=== PATIENT | male | born 1950 | race Caucasian/White ===

== ENCOUNTER → 2016-07-31 | Outpatient (CLI) | payer BC ==
[~2016-07-31] MED LIST: /GLYB5TA OR; /ONDA4TA OR; ACET65TA OR; CEFT2ADD IV; CIPR500T4 OR; DYAZ37.5 OR; FERR325T OR; FOSI OR; FOSI10TA2 OR; GLUC500T OR; HEPARIN LOCK FLUSH IV; INSULANT SC; NOVO70VL SC; NOVOLOG100 MG/ML SC; OMEP20TA7 OR; PERC5TAB8 OR; PERC7.5T8 OR; SALINE FLUSH IV; SLOWTAB OR; TYLENOL #3 OR; VITA500T OR; zocor PO
[2016-07-31 09:10] LABS: MEAN CORPUSCULAR HEMOGLOBIN 30.9 pg (27.0-33.0); MEAN CORPUSCULAR HGB CONC 33.6 g/dl (32.0-36.5); MEAN CORPUSCULAR VOLUME 91.8 fl (80.0-96.0); RED CELL DISTRIBUTION WIDTH 12.5 % (11.5-14.5); WHITE BLOOD COUNT 8.1 K/mm3 (4.0-10.0)
[2016-07-31 09:39] LABS: ALKALINE PHOSPHATASE 72 U/L (45-117); ALT/SGPT 42 U/L (12-78); ANION GAP 8 MEQ/L (8-16); AST/SGOT 25 U/L (15-37); BILIRUBIN,TOTAL 0.6 MG/DL (0.2-1.0); BLOOD UREA NITROGEN 21 MG/DL (7-18); CALCIUM LEVEL 9.3 MG/DL (8.8-10.2); CARBON DIOXIDE LEVEL 27 MEQ/L (21-32); CHLORIDE LEVEL 106 MEQ/L (98-107); CHOLESTEROL LEVEL 112 MG/DL (<200); CREATININE FOR GFR 1.01 MG/DL (0.70-1.30); GLOMERULAR FILTRATION RATE > 60.0 (>49); GLUCOSE, FASTING 146 MG/DL (80-110); POTASSIUM SERUM 4.3 MEQ/L (3.5-5.1); SODIUM LEVEL 141 MEQ/L (136-145); TRIGLYCERIDES LEVEL 92 MG/DL (<150)
[2016-07-31 09:40] LABS: ALBUMIN 3.4 GM/DL (3.2-5.2); ALBUMIN/GLOBULIN RATIO 1.06 (1.00-1.93); TOTAL PROTEIN 6.6 GM/DL (6.4-8.2)
--- NOTE | 2016-07-31 12:26 | REP ---
REASON: Hypertension. COMPARISON: Multiple latest 12/03/2014. FINDINGS: The superior mediastinal structures are midline. The cardiac silhouette is unremarkable in size, shape, and position. The diaphragmatic surfaces of the lungs are regular, and the costophrenic angles are clear. The pulmonary nath are clear. The imaged osseous structures are intact. IMPRESSION: There is no acute cardiopulmonary disease. No significant change from the prior exam. Signed by Bharathi Avalos DO 07/31/2016 01:42 P
--- NOTE | 2016-08-03 00:30 | ECGEPIP ---
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
== END ==
LOC: M LAB 08:28
PROVIDERS: ATTEND Family Medicine
DX: I10 Essential (primary) hypertension (principal); N40.0 Benign prostatic hyperplasia without lower urinary tract symptoms; R53.83 Other fatigue; E11.9 Type 2 diabetes mellitus without complications

== ENCOUNTER → 2017-10-02 | Outpatient (CLI) | payer MEDICARE, BC ==
[2017-10-02 08:58] LABS: BASO # 0.1 10^3/uL (0.0-0.2); BASO % 0.7 % (0.0-1.0); EOS # 0.4 10^3/uL (0.0-0.50); EOS % 4.5 % (0.0-3.0); HEMATOCRIT 41.4 % (42.0-52.0); HEMOGLOBIN 13.4 g/dl (13.5-17.5); IMMATURE GRANULOCYTE % 0.6 % (0-3.0); LYMPH # 1.4 10^3/uL (1.5-4.5); LYMPH % 16.8 % (24.0-44.0); MEAN CORPUSCULAR HGB CONC 32.4 g/dl (32.0-36.5); MEAN CORPUSCULAR VOLUME 92.8 fl (80.0-96.0); MONO # 0.6 10^3/uL (0.0-0.8); MONO % 6.9 % (0.0-5.0); NEUTROPHILS % 70.5 % (36.0-66.0); PLATELET COUNT, AUTOMATED 222 10^3/uL (150-450); RED BLOOD COUNT 4.46 10^6/uL (4.30-6.10); RED CELL DISTRIBUTION WIDTH 13.1 % (11.5-14.5); WHITE BLOOD COUNT 8.5 10^3/uL (4.0-10.0)
[2017-10-02 09:39] LABS: ALBUMIN 3.2 GM/DL (3.2-5.2); ALBUMIN/GLOBULIN RATIO 0.97 (1.00-1.93); ALKALINE PHOSPHATASE 72 U/L (45-117); ALT/SGPT 42 U/L (12-78); ANION GAP 5 MEQ/L (8-16); AST/SGOT 23 U/L (7-37); BILIRUBIN,TOTAL 0.4 MG/DL (0.2-1.0); BLOOD UREA NITROGEN 29 MG/DL (7-18); CALCIUM LEVEL 8.9 MG/DL (8.8-10.2); CARBON DIOXIDE LEVEL 29 MEQ/L (21-32); CHLORIDE LEVEL 108 MEQ/L (98-107); CHOLESTEROL LEVEL 93 MG/DL (<200); CHOLESTEROL RISK RATIO 2.818 (<5); CREATININE FOR GFR 1.21 MG/DL (0.70-1.30); GLOMERULAR FILTRATION RATE > 60.0 (>49); GLUCOSE, FASTING 156 MG/DL (70-100); HDL CHOLESTEROL 33 MG/DL (>40); NON-HDL-C 60 MG/DL; POTASSIUM SERUM 4.8 MEQ/L (3.5-5.1); PSA SCREENING 0.65 NG/ML (< 4.0); SODIUM LEVEL 142 MEQ/L (136-145); TOTAL PROTEIN 6.5 GM/DL (6.4-8.2); TRIGLYCERIDES LEVEL 90 MG/DL (<150)
[2017-10-02 10:06] LABS: MAU/CREAT RATIO 1990.9 MCG/MG (0.0-30.0)
[2017-10-02 10:29] LABS: ESTIMATED AVERAGE GLUCOSE 203 MG/DL (60-110); HEMOGLOBIN A1c 8.7 %
[2017-10-04 10:02] LABS: TOTAL 25(OH) VITAMIN D 40.3 NG/ML (30.0-100.0)
== END ==
LOC: M LAB 07:59
DX: Z12.5 Encounter for screening for malignant neoplasm of prostate (principal); E55.9 Vitamin D deficiency, unspecified; E11.9 Type 2 diabetes mellitus without complications
CPT/HCPCS: 80053

== ENCOUNTER → 2018-07-22 | Outpatient (CLI) | payer MEDICARE, BC ==
[~2018-07-22] MED LIST changes: -/GLYB5TA OR; -/ONDA4TA OR; +GLYB1TAB29 OR; +ONDA-1 OR
[2018-07-22 08:47] LABS: BASO # 0.1 10^3/uL (0.0-0.2); BASO % 0.8 % (0.0-1.0); EOS # 0.3 10^3/uL (0.0-0.50); EOS % 3.3 % (0.0-3.0); LYMPH # 1.6 10^3/uL (1.5-4.5); LYMPH % 19.8 % (24.0-44.0); MEAN CORPUSCULAR HEMOGLOBIN 30.4 pg (27.0-33.0); MEAN CORPUSCULAR HGB CONC 32.5 g/dl (32.0-36.5); MEAN CORPUSCULAR VOLUME 93.5 fl (80.0-96.0); MONO # 0.8 10^3/uL (0.0-0.8); MONO % 9.5 % (0.0-5.0); NEUTROPHILS # 5.2 10^3/uL (1.8-7.7); NEUTROPHILS % 66.2 % (36.0-66.0); PLATELET COUNT, AUTOMATED 225 10^3/uL (150-450); RED BLOOD COUNT 4.28 10^6/uL (4.30-6.10); WHITE BLOOD COUNT 7.9 10^3/uL (4.0-10.0)
[2018-07-22 09:14] LABS: CHOLESTEROL RISK RATIO 2.533 (<5)
[2018-07-22 09:44] LABS: CREATININE, URINE 58.6 MG/DL; CREATININE,RANDOM URINE 58.6 MG/DL; MAU/CREAT RATIO 2201.3 MCG/MG (0.0-30.0)
[2018-07-22 10:05] LABS: HEMOGLOBIN A1c 8.6 %
[2018-07-22 11:42] LABS: TOTAL 25(OH) VITAMIN D 33.1 NG/ML (30.0-100.0)
== END ==
LOC: M LAB 07:58
PROVIDERS: ATTEND Family Medicine
DX: E55.9 Vitamin D deficiency, unspecified (principal); E11.9 Type 2 diabetes mellitus without complications

== ENCOUNTER → 2019-07-18 | Outpatient (CLI) | payer MEDICARE, BC ==
[2019-07-18 07:50] LABS: HEMATOCRIT 43.2 % (42.0-52.0); MEAN CORPUSCULAR HEMOGLOBIN 30.6 pg (27.0-33.0); MEAN CORPUSCULAR HGB CONC 32.4 g/dl (32.0-36.5); MEAN CORPUSCULAR VOLUME 94.3 fl (80.0-96.0); PLATELET COUNT, AUTOMATED 230 10^3/uL (150-450); RED BLOOD COUNT 4.58 10^6/uL (4.30-6.10); WHITE BLOOD COUNT 8.2 10^3/uL (4.0-10.0)
[2019-07-18 08:20] LABS: ALBUMIN 3.4 GM/DL (3.2-5.2); ALT/SGPT 46 U/L (12-78); BILIRUBIN,TOTAL 0.5 MG/DL (0.2-1.0); BLOOD UREA NITROGEN 18 MG/DL (7-18); CALCIUM LEVEL 8.7 MG/DL (8.8-10.2); CARBON DIOXIDE LEVEL 29 MEQ/L (21-32); CHLORIDE LEVEL 109 MEQ/L (98-107); CHOLESTEROL LEVEL 92 MG/DL (<200); CHOLESTEROL RISK RATIO 2.705 (<5); CREATININE FOR GFR 1.25 MG/DL (0.70-1.30); GLOMERULAR FILTRATION RATE > 60.0 (>49); GLUCOSE, FASTING 134 MG/DL (70-100); HDL CHOLESTEROL 34 MG/DL (>40); LDL CHOLESTEROL 44 MG/DL (<100); NON-HDL-C 58 MG/DL; SODIUM LEVEL 142 MEQ/L (136-145); TOTAL PROTEIN 6.9 GM/DL (6.4-8.2); TRIGLYCERIDES LEVEL 68 MG/DL (<150)
[2019-07-18 08:54] LABS: CREATININE, URINE 68.8 MG/DL; MAU/CREAT RATIO 1845.9 MCG/MG (0.0-30.0)
[2019-07-18 09:45] LABS: HEMOGLOBIN A1c 7.5 %
[2019-07-18 10:41] LABS: TOTAL 25(OH) VITAMIN D 44.3 NG/ML (30.0-100.0)
== END ==
LOC: M LAB 07:04
PROVIDERS: ATTEND Family Medicine
DX: E55.9 Vitamin D deficiency, unspecified (principal); E11.9 Type 2 diabetes mellitus without complications; Z79.899 Other long term (current) drug therapy

== ENCOUNTER → 2020-03-29 | Outpatient (CLI) | payer MEDICARE, BC ==
[2020-03-29 09:42] LABS: HEMATOCRIT 36.5 % (42.0-52.0); HEMOGLOBIN 11.6 g/dl (13.5-17.5); MEAN CORPUSCULAR HEMOGLOBIN 29.8 pg (27.0-33.0); MEAN CORPUSCULAR HGB CONC 31.8 g/dl (32.0-36.5); MEAN CORPUSCULAR VOLUME 93.8 fl (80.0-96.0); PLATELET COUNT, AUTOMATED 214 10^3/uL (150-450); RED BLOOD COUNT 3.89 10^6/uL (4.30-6.10)
[2020-03-29 10:17] LABS: HEMOGLOBIN A1c 8.9 %
[2020-03-29 10:18] LABS: ALBUMIN 3.1 GM/DL (3.2-5.2); BILIRUBIN,TOTAL 0.6 MG/DL (0.2-1.0); CALCIUM LEVEL 8.7 MG/DL (8.8-10.2); CHOLESTEROL RISK RATIO 2.461 (<5); CREATININE FOR GFR 1.53 MG/DL (0.70-1.30); GLOMERULAR FILTRATION RATE 48.6 (>49); PROSTATIC SPECIFIC AG MONITOR 1.4 NG/ML (< 4.00); TOTAL PROTEIN 6.2 GM/DL (6.4-8.2)
[2020-03-29 10:47] LABS: CREATININE, URINE 52.1 MG/DL; MAU/CREAT RATIO 1894.4 MCG/MG (0.0-30.0)
== END ==
LOC: M LAB 08:50
PROVIDERS: ATTEND Family Medicine
DX: E11.9 Type 2 diabetes mellitus without complications (principal); Z12.5 Encounter for screening for malignant neoplasm of prostate

== ENCOUNTER → 2020-06-26 | Outpatient (CLI) | payer MEDICARE, BC ==
[~2020-06-26] MED LIST changes: +ASPI-1 PO; +BASA100I SC; +D31000TA2 PO; +FAMO40TA3 PO; +FEXO180T58 PO; +FOSI40TA3 PO; +INSUH10VL SC; +METF-839 PO; +SIMV40TA20 PO; +VITMTA PO
== END ==
LOC: M LABSMTC 10:54
PROVIDERS: ATTEND Anesthesiology
DX: Z01.812 Encounter for preprocedural laboratory examination (principal)

== ENCOUNTER → 2020-06-27 | Outpatient (CLI) | payer MEDICARE, BC ==
[2020-06-27 09:31] LABS: HEMOGLOBIN 14.7 g/dl (13.5-17.5); MEAN CORPUSCULAR HEMOGLOBIN 29.8 pg (27.0-33.0); MEAN CORPUSCULAR VOLUME 93.3 fl (80.0-96.0); PLATELET COUNT, AUTOMATED 227 10^3/uL (150-450); RED BLOOD COUNT 4.93 10^6/uL (4.30-6.10); WHITE BLOOD COUNT 9.8 10^3/uL (4.0-10.0)
[2020-06-27 10:00] LABS: ALBUMIN 3.7 GM/DL (3.2-5.2); BILIRUBIN,TOTAL 0.5 MG/DL (0.2-1.0); CALCIUM LEVEL 9.3 MG/DL (8.8-10.2); CREATININE FOR GFR 1.42 MG/DL (0.70-1.30); GLOMERULAR FILTRATION RATE 52.9 (>49); POTASSIUM SERUM 5.1 MEQ/L (3.5-5.1)
[2020-06-27 10:15] LABS: HEMOGLOBIN A1c 8.5 %
== END ==
LOC: M LAB 08:54
PROVIDERS: ATTEND Family Medicine
DX: E11.9 Type 2 diabetes mellitus without complications (principal)

== ENCOUNTER 2020-07-01 11:49 | Day surgery (SDC) | payer MEDICARE, BC ==
[~2020-07-01] VITALS: Ht 175.3 cm; Wt 105.2 kg
[~2020-07-01 11:49] MED LIST changes: +NS 1,000 ML IV ONE
[2020-07-01] MEDS ORDERED: hydrALAZINE 20MG/ML 1ML VIAL (J0360 PER 20MG) IV ONE (12:30)
[2020-07-01] MEDS ORDERED: propofoL 200 MG/20 ML VIAL As Ordered ONE (13:08)
[2020-07-01] MEDS ORDERED: LIDOCAINE 2% 100MG/5ML SDV (FOR ANES.) As Ordered ONE (13:08)
--- NOTE | 2020-07-01 14:02 | ROOR ---
Patient Name: Wilfredo Monique Procedure Date: 07/01/2020 1:36 PM Date of : 1950 Age: 69 Room: [facility] Gender: Male Note Status: Finalized Procedure: Total Colonoscopy to Cecum Indications: Colon cancer screening in patient at increased risk: Colorectal cancer in mother, Colon cancer screening in patient at increased risk: Colorectal cancer in father, Last colonoscopy: 2009 Providers: Luiz Larson MD Referring MD: Wilmer Fitzpatrick MD Requesting Provider: Medicines: Monitored Anesthesia Care Complications: No immediate complications. Procedure: Pre-Anesthesia Assessment: - The heart rate, respiratory rate, oxygen saturations, blood pressure, adequacy of pulmonary ventilation, and response to care were monitored throughout the procedure. The Colonoscope was introduced through the anus and advanced to the cecum, identified by appendiceal orifice and ileocecal valve. The colonoscopy was performed without difficulty. The patient tolerated the procedure well. The quality of the bowel preparation was excellent. Findings: The perianal and digital rectal examinations were normal. Non-bleeding internal hemorrhoids were found during retroflexion. The hemorrhoids were small and Grade I (internal hemorrhoids that do not prolapse). Scattered small-mouthed diverticula were found in the recto-sigmoid colon, sigmoid colon and descending colon. The exam was otherwise without abnormality on direct and retroflexion views. Impression: - Non-bleeding internal hemorrhoids. - Diverticulosis in the recto-sigmoid colon, in the sigmoid colon and in the descending colon. - The examination was otherwise normal on direct and retroflexion views. - No specimens collected. - The exam was otherwise normal to the cecum. Recommendation: - Patient has a contact number available for emergencies. The signs and symptoms of potential delayed complications were discussed with the patient. Return to normal activities tomorrow. Written discharge instructions were provided to the patient. - High fiber diet. - Discharge patient to home. - Continue present medications. - Repeat colonoscopy in 5 years for screening purposes. - Return to referring physician. - The findings and recommendations were discussed with the patient's family. Procedure Code(s): --- Professional --- G0105, Colorectal cancer screening; colonoscopy on individual at high risk Diagnosis Code(s): --- Professional --- K64.0, First degree hemorrhoids Z80.0, Family history of malignant neoplasm of digestive organs K57.30, Diverticulosis of large intestine without perforation or abscess without bleeding CPT copyright 2019 [employer]. All rights reserved. The codes documented in this report are preliminary and upon architect marine review may be revised to meet current compliance requirements. Luiz Larson MD Luiz Larson MD 07/01/2020 2:01:52 PM Electronically signed by Luiz Larson MD Number of Addenda: 0 Note Initiated On: 07/01/2020 1:36 PM Estimated Blood Loss: Estimated blood loss: none.
[2020-07-01] MEDS ORDERED: **hydrALAZINE** 10 MG TAB PO ONE (15:00)
[2020-07-01 15:09] VITALS: BP 233/105
[2020-07-01 15:48] VITALS: BP 180/92
--- NOTE | 2020-07-01 21:18 | ECGEPIP ---
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
== END 2020-07-01 15:49 | disposition home or self-care (01) ==
LOC: M OPP 11:49
PROVIDERS: ATTEND Internal Medicine Gastroenterology
DX: Z12.11 Encounter for screening for malignant neoplasm of colon (principal); Z80.0 Family history of malignant neoplasm of digestive organs; K64.0 First degree hemorrhoids; K57.30 Diverticulosis of large intestine without perforation or abscess without bleeding; I10 Essential (primary) hypertension; E78.5 Hyperlipidemia, unspecified; E10.9 Type 1 diabetes mellitus without complications; K21.9 Gastro-esophageal reflux disease without esophagitis; H91.90 Unspecified hearing loss, unspecified ear; Z79.4 Long term (current) use of insulin; Z79.82 Long term (current) use of aspirin; Z79.899 Other long term (current) drug therapy
CPT/HCPCS: 93005; G0105; J0360

== ENCOUNTER → 2020-07-03 | Outpatient (CLI) | payer MEDICARE, BC ==
[~2020-07-03] MED LIST changes: -NS 1,000 ML IV ONE
[2020-07-03 13:45] LABS: FREE T4 0.89 NG/DL (0.76-1.46); THYROID STIMULATING HORMONE 0.834 uIU/ML (0.358-3.740)
== END ==
LOC: M LAB 11:14
PROVIDERS: ATTEND Internal Medicine Cardiovascular Disease
DX: I48.91 Unspecified atrial fibrillation (principal)

== ENCOUNTER → 2020-07-10 | Outpatient (CLI) | payer MEDICARE, BC ==
--- NOTE | 2020-07-15 15:08 | SLEEPHOME ---
DIAGNOSTIC HOME SLEEP STUDY DATE: 07/10/2020 ORDERED BY: Seven Mena M.D. Diagnostic home sleep testing was performed due to concern for the obstructive sleep apnea syndrome in this patient with a history of snoring. For testing, a nocturnal T3 respiratory monitoring device was used. Continuous record was made of pulse, oxygen saturation, air flow, chest and abdominal strain, and body position. 9 hours and 59 minutes of data were reviewed. There were 8 hours marked as time in bed. During the interval marked time in bed, there were 455 respiratory events identified of 10 seconds in duration or greater for a respiratory event index 56.8. The events were primary obstructive though 256 mixed and central apneas were also noted. The baseline pulse rate was 56. Pulse rate range 41 to 103. Baseline saturation was 96%. Saturations fell to 76%. Testing was performed in both the supine and non-supine positions. IMPRESSION: Abnormal home sleep testing, with repetitive respiratory events and oxygen desaturations to 76% with a respiratory event index of 56.8, is consistent with the obstructive sleep apnea syndrome. RECOMMENDATION: Given the frequency of central apneic events, the patient should be strongly encouraged to undergo formal sleep evaluation and may require complex pressure therapy.
== END ==
LOC: M SLEEP HO 10:28
PROVIDERS: ATTEND Internal Medicine Cardiovascular Disease
DX: R06.83 Snoring (principal)

== ENCOUNTER → 2020-07-11 | Outpatient (REF) | payer MEDICARE, BC | LOC: M LAB REF 09:33 | PROVIDERS: ATTEND Internal Medicine Cardiovascular Disease | DX: I48.91 Unspecified atrial fibrillation (principal) ==

== ENCOUNTER 2021-03-21 09:08 | Inpatient (IN) | payer MEDICARE, BC ==
[~2021-03-21] VITALS: Ht 177.8 cm; Wt 117.0 kg
[~2021-03-21 09:08] MED LIST changes: -FOSI40TA3 PO; +FOSI40TA59 PO
[2021-03-21] MEDS ORDERED: MORPHINE 4 MG/ML 1ML VIAL/SYRINGE (J2270) IV ONE (09:35)
[2021-03-21] MEDS ORDERED: ONDANSETRON 4MG/2ML VIAL IV ONE (09:35)
[2021-03-21] MEDS: NS 1,000 ML IV SCH ×2 (09:35→15:08)
[2021-03-21] MEDS ORDERED: ELIQ5TAB PO (09:36)
[2021-03-21 10:13] LABS: BASO # 0.1 10^3/uL (0.0-0.2); BASO % 0.6 % (0.0-1.0); EOS # 0.2 10^3/uL (0.0-0.5); EOS % 1.9 % (0.0-3.0); HEMATOCRIT 43.5 % (42.0-52.0); LYMPH % 11.9 % (24.0-44.0); MEAN CORPUSCULAR HEMOGLOBIN 30.6 pg (27.0-33.0); MEAN CORPUSCULAR HGB CONC 32.2 g/dl (32.0-36.5); MONO # 0.7 10^3/uL (0.0-0.8); MONO % 7.7 % (2.0-8.0); NEUTROPHILS # 6.6 10^3/uL (1.5-8.5); NEUTROPHILS % 76.7 % (36.0-66.0); PLATELET COUNT, AUTOMATED 198 10^3/uL (150-450); RED BLOOD COUNT 4.58 10^6/uL (4.30-6.10); WHITE BLOOD COUNT 8.5 10^3/uL (4.0-10.0)
[2021-03-21 10:50] LABS: CALCIUM LEVEL 8.9 MG/DL (8.8-10.2); CREATININE FOR GFR 1.48 MG/DL (0.70-1.30); GLOMERULAR FILTRATION RATE 50.3 (>49); POTASSIUM SERUM 4.9 MEQ/L (3.5-5.1)
[2021-03-21 11:00] LABS: RSV AMPLIFICATION NEGATIVE (NEGATIVE)
[2021-03-21] MEDS ORDERED: MORPHINE 4 MG/ML 1ML VIAL/SYRINGE (J2270) IV PRN (11:05)
[2021-03-21] MEDS ORDERED: ACETAMINOPHEN TAB 650MG DOSE (2X325MG) PO PRN (12:55)
[2021-03-21] MEDS ORDERED: VITA200015 PO (13:00)
[2021-03-21] MEDS ORDERED: VALS1TAB68 PO (13:00)
[2021-03-21] MEDS ORDERED: VITA500C24 PO (13:00)
[2021-03-21] MEDS ORDERED: HOME MED LIST COMPLETE! XX SCH (13:05)
[2021-03-21] MEDS: MORPHINE 2 MG/ML 1ML VIAL (J2270) IV PRN ×2 (13:27→17:48)
[2021-03-21] MEDS: CYCLOBENZAPRINE 5MG TABLET PO SCH ×2 (13:27→21:05)
[2021-03-21] MEDS ORDERED: DEXTROSE 50% 50 ML SYRINGE IV PRN (14:35)
[2021-03-21] MEDS ORDERED: GLUCAGON INJ 1MG VIAL SC PRN (14:35)
[2021-03-21] MEDS ORDERED: GLUCOSE 4GM CHEW TABLET PO PRN (14:35)
[2021-03-21] MEDS: PERCOCET 5MG/325MG TAB PO PRN (15:23)
[2021-03-21 15:40] VITALS: BP 165/90
[2021-03-21] MEDS: HumaLOG INSULIN (NovoLOG) PER UNIT SC SCH ×2 (17:48→21:00)
[2021-03-21 21:00] VITALS: BP 150/91
[2021-03-21] MEDS: LEVEMIR (INSULIN DETEMIR) 1 UNITS/0.01ML SC SCH (21:00)
[2021-03-21] MEDS: FAMOTIDINE 20 MG TAB PO SCH (21:04)
[2021-03-21] MEDS: VALSARTAN 80 MG TAB (DIOVAN) PO SCH (21:05)
[2021-03-21] MEDS: SIMVASTATIN 40 MG TAB PO SCH (21:05)
[2021-03-21] MEDS: APIXABAN 5 MG TAB (ELIQUIS) PO SCH (21:05)
[2021-03-22] MEDS: PERCOCET 5MG/325MG TAB PO PRN ×3 (00:02→17:47)
[2021-03-22] MEDS: CYCLOBENZAPRINE 5MG TABLET PO SCH ×3 (05:41→22:17)
[2021-03-22 06:00] VITALS: BP 127/65
[2021-03-22 06:41] LABS: MEAN CORPUSCULAR HEMOGLOBIN 30.5 pg (27.0-33.0); MEAN CORPUSCULAR HGB CONC 31.7 g/dl (32.0-36.5); MEAN CORPUSCULAR VOLUME 96.2 fl (80.0-96.0); PLATELET COUNT, AUTOMATED 177 10^3/uL (150-450); RED BLOOD COUNT 4.26 10^6/uL (4.30-6.10); WHITE BLOOD COUNT 10.4 10^3/uL (4.0-10.0)
[2021-03-22 07:07] LABS: CALCIUM LEVEL 8.5 MG/DL (8.8-10.2); CREATININE FOR GFR 1.49 MG/DL (0.70-1.30); GLOMERULAR FILTRATION RATE 49.9 (>49); POTASSIUM SERUM 4.7 MEQ/L (3.5-5.1)
[2021-03-22] MEDS: MULTIVITAMINS/MINERALS THERAP 1 TAB PO SCH (08:54)
[2021-03-22] MEDS: NS 1,000 ML IV SCH (08:54)
[2021-03-22] MEDS: ASCORBIC ACID 500 MG TAB PO SCH (08:54)
[2021-03-22] MEDS: HumaLOG INSULIN (NovoLOG) PER UNIT SC SCH ×4 (08:54→22:18)
[2021-03-22] MEDS: FEXOFENADINE 60 MG TAB PO SCH (08:54)
[2021-03-22] MEDS: APIXABAN 5 MG TAB (ELIQUIS) PO SCH ×2 (08:54→22:17)
[2021-03-22] MEDS ORDERED: ASPIRIN 325 MG TAB PO SCH (09:00)
[2021-03-22 14:00] VITALS: BP 156/88
[2021-03-22 22:00] VITALS: BP 153/70
[2021-03-22] MEDS: SIMVASTATIN 40 MG TAB PO SCH (22:17)
[2021-03-22] MEDS: VALSARTAN 80 MG TAB (DIOVAN) PO SCH (22:17)
[2021-03-22] MEDS: LEVEMIR (INSULIN DETEMIR) 1 UNITS/0.01ML SC SCH (22:18)
[2021-03-22] MEDS: FAMOTIDINE 20 MG TAB PO SCH (22:18)
[2021-03-22] MEDS: MORPHINE 2 MG/ML 1ML VIAL (J2270) IV PRN (22:33)
[2021-03-23 05:06] VITALS: BP 158/90
[2021-03-23] MEDS: CYCLOBENZAPRINE 5MG TABLET PO SCH ×3 (05:36→21:23)
[2021-03-23 06:27] LABS: HEMATOCRIT 38.6 % (42.0-52.0); HEMOGLOBIN 12.2 g/dl (13.5-17.5); MEAN CORPUSCULAR HEMOGLOBIN 30.3 pg (27.0-33.0); MEAN CORPUSCULAR HGB CONC 31.6 g/dl (32.0-36.5); MEAN CORPUSCULAR VOLUME 95.8 fl (80.0-96.0); PLATELET COUNT, AUTOMATED 166 10^3/uL (150-450); RED BLOOD COUNT 4.03 10^6/uL (4.30-6.10); WHITE BLOOD COUNT 8.5 10^3/uL (4.0-10.0)
[2021-03-23 06:48] LABS: CALCIUM LEVEL 8.4 MG/DL (8.8-10.2); CREATININE FOR GFR 1.44 MG/DL (0.70-1.30); GLOMERULAR FILTRATION RATE 51.9 (>49); POTASSIUM SERUM 4.5 MEQ/L (3.5-5.1)
[2021-03-23] MEDS: ASCORBIC ACID 500 MG TAB PO SCH (08:07)
[2021-03-23] MEDS: APIXABAN 5 MG TAB (ELIQUIS) PO SCH ×2 (08:07→21:25)
[2021-03-23] MEDS: HumaLOG INSULIN (NovoLOG) PER UNIT SC SCH ×4 (08:07→21:26)
[2021-03-23] MEDS: FEXOFENADINE 60 MG TAB PO SCH (08:07)
[2021-03-23] MEDS: MULTIVITAMINS/MINERALS THERAP 1 TAB PO SCH (08:07)
[2021-03-23 14:00] VITALS: BP 182/84
[2021-03-23] MEDS: PERCOCET 5MG/325MG TAB PO PRN (17:46)
[2021-03-23] MEDS: SIMVASTATIN 40 MG TAB PO SCH (21:23)
[2021-03-23 21:24] VITALS: BP 155/98
[2021-03-23] MEDS: VALSARTAN 80 MG TAB (DIOVAN) PO SCH (21:24)
[2021-03-23] MEDS: LEVEMIR (INSULIN DETEMIR) 1 UNITS/0.01ML SC SCH (21:25)
[2021-03-23] MEDS: FAMOTIDINE 20 MG TAB PO SCH (21:25)
[2021-03-23 22:00] VITALS: BP 155/98
[2021-03-24] MEDS ORDERED: SENNA 8.6 MG TAB (SENOKOT) PO PRN (03:15)
[2021-03-24] MEDS ORDERED: MIRALAX *UNIT DOSE* 17GM PACKET PO PRN (03:15)
[2021-03-24] MEDS ORDERED: MOM 30ML SUSPENSION UDC PO PRN (03:15)
[2021-03-24] MEDS: CYCLOBENZAPRINE 5MG TABLET PO SCH ×2 (05:35→13:14)
[2021-03-24 06:00] VITALS: BP 172/94
[2021-03-24 07:21] LABS: HEMATOCRIT 37.3 % (42.0-52.0); MEAN CORPUSCULAR HEMOGLOBIN 30.3 pg (27.0-33.0); MEAN CORPUSCULAR HGB CONC 32.2 g/dl (32.0-36.5); MEAN CORPUSCULAR VOLUME 94.2 fl (80.0-96.0); PLATELET COUNT, AUTOMATED 178 10^3/uL (150-450); RED BLOOD COUNT 3.96 10^6/uL (4.30-6.10); WHITE BLOOD COUNT 9.8 10^3/uL (4.0-10.0)
[2021-03-24 07:53] LABS: CALCIUM LEVEL 8.4 MG/DL (8.8-10.2); CREATININE FOR GFR 1.45 MG/DL (0.70-1.30); GLOMERULAR FILTRATION RATE 51.5 (>49); POTASSIUM SERUM 4.5 MEQ/L (3.5-5.1)
[2021-03-24] MEDS: MULTIVITAMINS/MINERALS THERAP 1 TAB PO SCH (08:48)
[2021-03-24] MEDS: ASCORBIC ACID 500 MG TAB PO SCH (08:48)
[2021-03-24] MEDS: APIXABAN 5 MG TAB (ELIQUIS) PO SCH (08:48)
[2021-03-24] MEDS: HumaLOG INSULIN (NovoLOG) PER UNIT SC SCH ×2 (08:48→13:14)
[2021-03-24] MEDS: FEXOFENADINE 60 MG TAB PO SCH (08:48)
[2021-03-24] MEDS: PERCOCET 5MG/325MG TAB PO PRN ×2 (08:49→14:50)
[2021-03-24] MEDS ORDERED: MORPHINE 4 MG/ML 1ML VIAL/SYRINGE (J2270) IV PRN (08:50)
[2021-03-24] MEDS ORDERED: MIRALAX *UNIT DOSE* 17GM PACKET PO SCH (09:00)
[2021-03-24] MEDS ORDERED: ACET1TAB55 PO (10:43)
[2021-03-24] MEDS ORDERED: MIRA1POW3 PO (10:44)
[2021-03-24] MEDS ORDERED: SENN18TA PO (10:44)
[2021-03-24] MEDS ORDERED: CYCL5TAB PO (10:44)
[2021-03-24] MEDS ORDERED: PERCOCET PO (10:44)
[2021-03-24 14:00] VITALS: BP 135/72
== END 2021-03-24 16:00 | DRG 536 ==
LOC: M ED 09:08 → EDBD 09:08 → M ED INP 13:01 → ENRESERV 14:20 → M MS5PR 15:30
PROVIDERS: ADMIT Internal Medicine; ATTEND Internal Medicine
DX: S32.401A Unspecified fracture of right acetabulum, initial encounter for closed fracture (principal); I48.20 Chronic atrial fibrillation, unspecified; I10 Essential (primary) hypertension; E11.9 Type 2 diabetes mellitus without complications; G47.33 Obstructive sleep apnea (adult) (pediatric); Z79.4 Long term (current) use of insulin; E78.00 Pure hypercholesterolemia, unspecified; Z79.82 Long term (current) use of aspirin; Z79.899 Other long term (current) drug therapy; Z89.421 Acquired absence of other right toe(s)

== ENCOUNTER 2021-03-24 10:25 | Inpatient (IN) | payer MEDICARE, BC ==
[~2021-03-24] VITALS: Ht 177.8 cm; Wt 112.9 kg
[~2021-03-24 10:25] MED LIST changes: +ELIQ5TAB PO; +VALS1TAB68 PO; +VITA200015 PO; +VITA500C24 PO
[2021-03-24] MEDS ORDERED: ACET1TAB55 PO (10:43)
[2021-03-24] MEDS ORDERED: SENN18TA PO (10:44)
[2021-03-24] MEDS ORDERED: PERCOCET PO (10:44)
[2021-03-24] MEDS ORDERED: MIRA1POW3 PO (10:44)
[2021-03-24] MEDS ORDERED: CYCL5TAB PO (10:44)
[2021-03-24] MEDS ORDERED: CYCLOBENZAPRINE 5MG TABLET PO PRN (11:45)
[2021-03-24] MEDS ORDERED: MIRALAX *UNIT DOSE* 17GM PACKET PO PRN (11:45)
[2021-03-24] MEDS ORDERED: DEXTROSE 50% 50 ML SYRINGE IV PRN (11:45)
[2021-03-24] MEDS ORDERED: GLUCAGON INJ 1MG VIAL SC PRN (11:45)
[2021-03-24] MEDS ORDERED: GLUCOSE 4GM CHEW TABLET PO PRN (11:45)
[2021-03-24] MEDS ORDERED: oxyCODONE 5MG TAB PO PRN (11:45)
[2021-03-24 16:00] VITALS: BP 122/84
[2021-03-24] MEDS ORDERED: PILL CUTTER 1 EACH XX PRN (16:25)
[2021-03-24] MEDS: HumaLOG INSULIN (NovoLOG) PER UNIT SC SCH ×3 (16:28→21:00)
[2021-03-24] MEDS: SUCRALFATE 1 GM TAB PO SCH ×3 (16:28→21:14)
[2021-03-24] MEDS: ACETAMINOPHEN 500 MG TAB PO SCH ×2 (17:30→21:14)
[2021-03-24] MEDS: REMEDY PHYTOPLEX Z-GUARD PASTE 113GM TUBE (FROM STOREROOM PRODUCT) TOP SCH ×2 (17:34→21:00)
[2021-03-24] MEDS: **hydrALAZINE HCL** 25 MG TAB PO SCH ×2 (17:35→23:29)
[2021-03-24 20:58] VITALS: BP_SYST 142; BP_SYST 170; BP_DIAS 84; BP_DIAS 89
[2021-03-24] MEDS: LEVEMIR (INSULIN DETEMIR) 1 UNITS/0.01ML SC SCH (21:13)
[2021-03-24] MEDS: APIXABAN 5 MG TAB (ELIQUIS) PO SCH (21:14)
[2021-03-24] MEDS: DOCUSATE SODIUM 100MG CAPSULE PO SCH (21:14)
[2021-03-24] MEDS: VALSARTAN 80 MG TAB (DIOVAN) PO SCH (21:14)
[2021-03-24] MEDS: FAMOTIDINE 20 MG TAB PO SCH (21:15)
[2021-03-24] MEDS: SENNA 8.6 MG TAB (SENOKOT) PO SCH (21:15)
[2021-03-24] MEDS: SIMVASTATIN 40 MG TAB PO SCH (21:15)
[2021-03-24] MEDS ORDERED: BISACODYL 10 MG SUPP PR PRN (22:35)
[2021-03-25 05:28] VITALS: BP 144/93
[2021-03-25] MEDS: **hydrALAZINE HCL** 25 MG TAB PO SCH ×4 (05:33→23:39)
[2021-03-25 06:35] LABS: BASO # 0.1 10^3/uL (0.0-0.2); BASO % 0.8 % (0.0-1.0); EOS # 0.3 10^3/uL (0.0-0.5); EOS % 3.6 % (0.0-3.0); HEMATOCRIT 39.2 % (42.0-52.0); HEMOGLOBIN 12.7 g/dl (13.5-17.5); LYMPH # 1.3 10^3/uL (1.5-5.0); LYMPH % 16.8 % (24.0-44.0); MEAN CORPUSCULAR HEMOGLOBIN 30.3 pg (27.0-33.0); MEAN CORPUSCULAR HGB CONC 32.4 g/dl (32.0-36.5); MEAN CORPUSCULAR VOLUME 93.6 fl (80.0-96.0); MONO # 0.7 10^3/uL (0.0-0.8); MONO % 9.1 % (2.0-8.0); NEUTROPHILS # 5.5 10^3/uL (1.5-8.5); NEUTROPHILS % 69.2 % (36.0-66.0); PLATELET COUNT, AUTOMATED 191 10^3/uL (150-450); RED BLOOD COUNT 4.19 10^6/uL (4.30-6.10)
[2021-03-25 07:03] LABS: ALBUMIN 2.9 GM/DL (3.2-5.2); BILIRUBIN,TOTAL 0.6 MG/DL (0.2-1.0); CALCIUM LEVEL 8.5 MG/DL (8.8-10.2); CREATININE FOR GFR 1.55 MG/DL (0.70-1.30); GLOMERULAR FILTRATION RATE 47.7 (>49); POTASSIUM SERUM 4.3 MEQ/L (3.5-5.1); TOTAL PROTEIN 6.8 GM/DL (6.4-8.2)
[2021-03-25] MEDS: HumaLOG INSULIN (NovoLOG) PER UNIT SC SCH ×4 (08:48→20:36)
[2021-03-25] MEDS: DOCUSATE SODIUM 100MG CAPSULE PO SCH ×2 (08:48→20:33)
[2021-03-25] MEDS: MULTIVITAMINS/MINERALS THERAP 1 TAB PO SCH (08:48)
[2021-03-25] MEDS: ASCORBIC ACID 500 MG TAB PO SCH (08:48)
[2021-03-25] MEDS: ASPIRIN 81MG ENTERIC TABLET PO SCH (08:48)
[2021-03-25] MEDS: ACETAMINOPHEN 500 MG TAB PO SCH ×3 (08:49→20:34)
[2021-03-25] MEDS: SUCRALFATE 1 GM TAB PO SCH ×4 (08:49→20:33)
[2021-03-25] MEDS: APIXABAN 5 MG TAB (ELIQUIS) PO SCH ×2 (08:49→20:33)
[2021-03-25] MEDS: REMEDY PHYTOPLEX Z-GUARD PASTE 113GM TUBE (FROM STOREROOM PRODUCT) TOP SCH ×3 (08:56→20:36)
[2021-03-25] MEDS ORDERED: FEXOFENADINE 60 MG TAB PO SCH (09:00)
[2021-03-25 14:00] VITALS: BP 147/70
[2021-03-25] MEDS ORDERED: oxyCODONE 5MG TAB PO PRN (14:35)
[2021-03-25] MEDS ORDERED: HOME MED LIST COMPLETE! XX SCH (14:50)
[2021-03-25 20:01] VITALS: BP 139/70
[2021-03-25] MEDS: SENNA 8.6 MG TAB (SENOKOT) PO SCH (20:33)
[2021-03-25] MEDS: SIMVASTATIN 40 MG TAB PO SCH (20:33)
[2021-03-25] MEDS: VALSARTAN 80 MG TAB (DIOVAN) PO SCH (20:33)
[2021-03-25] MEDS: FAMOTIDINE 20 MG TAB PO SCH (20:34)
[2021-03-25] MEDS: LEVEMIR (INSULIN DETEMIR) 1 UNITS/0.01ML SC SCH (20:35)
[2021-03-26] MEDS: **hydrALAZINE HCL** 25 MG TAB PO SCH (05:58)
[2021-03-26 06:00] VITALS: BP 140/85
[2021-03-26 07:17] LABS: BASO # 0.1 10^3/uL (0.0-0.2); BASO % 0.8 % (0.0-1.0); EOS # 0.3 10^3/uL (0.0-0.5); EOS % 3.8 % (0.0-3.0); HEMATOCRIT 39.8 % (42.0-52.0); HEMOGLOBIN 12.9 g/dl (13.5-17.5); LYMPH # 1.1 10^3/uL (1.5-5.0); LYMPH % 14.5 % (24.0-44.0); MEAN CORPUSCULAR HGB CONC 32.4 g/dl (32.0-36.5); MEAN CORPUSCULAR VOLUME 92.6 fl (80.0-96.0); MONO # 0.7 10^3/uL (0.0-0.8); MONO % 8.6 % (2.0-8.0); NEUTROPHILS # 5.5 10^3/uL (1.5-8.5); NEUTROPHILS % 71.6 % (36.0-66.0); PLATELET COUNT, AUTOMATED 194 10^3/uL (150-450); WHITE BLOOD COUNT 7.7 10^3/uL (4.0-10.0)
[2021-03-26 07:50] LABS: CALCIUM LEVEL 8.9 MG/DL (8.8-10.2); CREATININE FOR GFR 1.55 MG/DL (0.70-1.30); GLOMERULAR FILTRATION RATE 47.7 (>49); POTASSIUM SERUM 4.2 MEQ/L (3.5-5.1)
[2021-03-26] MEDS: SUCRALFATE 1 GM TAB PO SCH ×4 (08:53→20:38)
[2021-03-26] MEDS: ACETAMINOPHEN 500 MG TAB PO SCH ×3 (08:54→20:40)
[2021-03-26] MEDS: DOCUSATE SODIUM 100MG CAPSULE PO SCH ×2 (08:54→20:38)
[2021-03-26] MEDS: ASPIRIN 81MG ENTERIC TABLET PO SCH (08:54)
[2021-03-26] MEDS: APIXABAN 5 MG TAB (ELIQUIS) PO SCH ×2 (08:54→20:39)
[2021-03-26] MEDS: MULTIVITAMINS/MINERALS THERAP 1 TAB PO SCH (08:54)
[2021-03-26] MEDS: ASCORBIC ACID 500 MG TAB PO SCH (08:55)
[2021-03-26] MEDS: HumaLOG INSULIN (NovoLOG) PER UNIT SC SCH ×4 (08:55→20:41)
[2021-03-26] MEDS: REMEDY PHYTOPLEX Z-GUARD PASTE 113GM TUBE (FROM STOREROOM PRODUCT) TOP SCH ×3 (08:56→20:42)
[2021-03-26] MEDS ORDERED: oxyCODONE 5MG TAB PO PRN (11:45)
[2021-03-26] MEDS: amLODIPine 5 MG TAB PO SCH (12:13)
[2021-03-26] MEDS: **hydrALAZINE** 50 MG TAB PO SCH ×3 (12:13→23:37)
[2021-03-26] MEDS: LIDOCAINE 5% (LIDODERM) PATCH TD SCH (12:14)
[2021-03-26] MEDS: LEVEMIR (INSULIN DETEMIR) 1 UNITS/0.01ML SC SCH (12:14)
[2021-03-26 14:00] VITALS: BP 158/70
[2021-03-26 16:38] VITALS: BP 162/78
[2021-03-26 20:00] VITALS: BP 168/100
[2021-03-26] MEDS: SENNA 8.6 MG TAB (SENOKOT) PO SCH (20:38)
[2021-03-26] MEDS: FAMOTIDINE 20 MG TAB PO SCH (20:38)
[2021-03-26] MEDS: VALSARTAN 80 MG TAB (DIOVAN) PO SCH (20:39)
[2021-03-26] MEDS: SIMVASTATIN 40 MG TAB PO SCH (20:40)
[2021-03-26] MEDS: **NOTE PATIENT COMMENT** MISC XX SCH (20:43)
[2021-03-26] MEDS ORDERED: LEVEMIR (INSULIN DETEMIR) 1 UNITS/0.01ML SC SCH ×2 (21:00)
[2021-03-27 01:32] LABS: APPEARANCE, URINE CLEAR (CLEAR); BACTERIA, URINE AUTO NEGATIVE (NEGATIVE); BILIRUBIN, URINE AUTO NEGATIVE (NEGATIVE); BLOOD, URINE BLOOD NEGATIVE (NEGATIVE); COLOR, URINE STRAW (YELLOW); GLUCOSE, URINE (UA) AUTO 3+ mg/dL (NEGATIVE); KETONE, URINE AUTO NEGATIVE (NEGATIVE); LEUKOCYTE ESTERASE, URINE AUTO NEGATIVE (NEGATIVE); NITRITE, URINE AUTO NEGATIVE (NEGATIVE); PROTEIN, URINE AUTO 2+ mg/dL (NEGATIVE); RBC, URINE AUTO 0 /HPF (0-3); SPECIFIC GRAVITY URINE AUTO 1.017 (1.002-1.035); SQUAMOUS EPITHELIAL CELL UR AU 0 /HPF (0-6); UROBILINOGEN, URINE AUTO 0.2 mg/dL (0.0-2.0); WBC, URINE AUTO 0 /HPF (0-3)
[2021-03-27 06:00] VITALS: BP 150/80
[2021-03-27] MEDS: **hydrALAZINE** 50 MG TAB PO SCH ×3 (06:02→17:26)
[2021-03-27] MEDS: HumaLOG INSULIN (NovoLOG) PER UNIT SC SCH ×4 (07:17→21:52)
[2021-03-27] MEDS: LEVEMIR (INSULIN DETEMIR) 1 UNITS/0.01ML SC SCH (07:17)
[2021-03-27] MEDS: SUCRALFATE 1 GM TAB PO SCH ×4 (07:17→21:50)
[2021-03-27] MEDS: ASPIRIN 81MG ENTERIC TABLET PO SCH (07:18)
[2021-03-27] MEDS: ACETAMINOPHEN 500 MG TAB PO SCH ×3 (07:18→21:52)
[2021-03-27] MEDS: APIXABAN 5 MG TAB (ELIQUIS) PO SCH ×2 (07:18→21:50)
[2021-03-27] MEDS: amLODIPine 5 MG TAB PO SCH (07:18)
[2021-03-27] MEDS: ASCORBIC ACID 500 MG TAB PO SCH (07:18)
[2021-03-27] MEDS: DOCUSATE SODIUM 100MG CAPSULE PO SCH ×2 (07:18→21:51)
[2021-03-27] MEDS: REMEDY PHYTOPLEX Z-GUARD PASTE 113GM TUBE (FROM STOREROOM PRODUCT) TOP SCH ×3 (07:19→21:00)
[2021-03-27] MEDS: MULTIVITAMINS/MINERALS THERAP 1 TAB PO SCH (07:19)
[2021-03-27] MEDS: LIDOCAINE 5% (LIDODERM) PATCH TD SCH (07:19)
[2021-03-27 08:26] LABS: CALCIUM LEVEL 8.8 MG/DL (8.8-10.2); CREATININE FOR GFR 1.54 MG/DL (0.70-1.30); GLOMERULAR FILTRATION RATE 48.1 (>49); POTASSIUM SERUM 4.3 MEQ/L (3.5-5.1)
[2021-03-27] MEDS ORDERED: FUROSEMIDE 40 MG TAB PO ONE (10:25)
[2021-03-27 11:29] VITALS: BP 168/76
[2021-03-27 13:44] LABS: APPEARANCE, URINE CLEAR (CLEAR); BACTERIA, URINE AUTO NEGATIVE (NEGATIVE); BILIRUBIN, URINE AUTO NEGATIVE (NEGATIVE); BLOOD, URINE BLOOD NEGATIVE (NEGATIVE); COLOR, URINE YELLOW (YELLOW); GLUCOSE, URINE (UA) AUTO 3+ mg/dL (NEGATIVE); KETONE, URINE AUTO NEGATIVE (NEGATIVE); LEUKOCYTE ESTERASE, URINE AUTO NEGATIVE (NEGATIVE); NITRITE, URINE AUTO NEGATIVE (NEGATIVE); PROTEIN, URINE AUTO 2+ mg/dL (NEGATIVE); RBC, URINE AUTO 0 /HPF (0-3); SPECIFIC GRAVITY URINE AUTO 1.013 (1.002-1.035); SQUAMOUS EPITHELIAL CELL UR AU 0 /HPF (0-6); UROBILINOGEN, URINE AUTO 0.2 mg/dL (0.0-2.0); WBC, URINE AUTO 0 /HPF (0-3)
[2021-03-27 14:01] VITALS: BP 168/78
[2021-03-27 14:33] LABS: TOTAL PROTEIN,RANDOM URINE 83.7 MG/DL (0.0-12.0)
[2021-03-27 17:23] VITALS: BP 155/72
[2021-03-27 20:00] VITALS: BP 134/69
[2021-03-27] MEDS ORDERED: LEVEMIR (INSULIN DETEMIR) 1 UNITS/0.01ML SC SCH (21:00)
[2021-03-27] MEDS: SIMVASTATIN 40 MG TAB PO SCH (21:50)
[2021-03-27] MEDS: FAMOTIDINE 20 MG TAB PO SCH (21:51)
[2021-03-27] MEDS: VALSARTAN 80 MG TAB (DIOVAN) PO SCH (21:51)
[2021-03-27] MEDS: SENNA 8.6 MG TAB (SENOKOT) PO SCH (21:51)
[2021-03-27] MEDS: **NOTE PATIENT COMMENT** MISC XX SCH (21:53)
[2021-03-28] MEDS: **hydrALAZINE** 50 MG TAB PO SCH ×5 (00:10→23:27)
[2021-03-28 06:00] VITALS: BP 170/98
[2021-03-28 07:39] VITALS: BP 138/60
[2021-03-28] MEDS: REMEDY PHYTOPLEX Z-GUARD PASTE 113GM TUBE (FROM STOREROOM PRODUCT) TOP SCH ×3 (09:00→20:22)
[2021-03-28] MEDS: LEVEMIR (INSULIN DETEMIR) 1 UNITS/0.01ML SC SCH ×2 (09:52→20:19)
[2021-03-28] MEDS: HumaLOG INSULIN (NovoLOG) PER UNIT SC SCH ×4 (09:52→20:20)
[2021-03-28] MEDS: MULTIVITAMINS/MINERALS THERAP 1 TAB PO SCH (09:52)
[2021-03-28] MEDS: DOCUSATE SODIUM 100MG CAPSULE PO SCH ×2 (09:53→20:21)
[2021-03-28] MEDS: ASCORBIC ACID 500 MG TAB PO SCH (09:53)
[2021-03-28] MEDS: APIXABAN 5 MG TAB (ELIQUIS) PO SCH ×2 (09:53→20:20)
[2021-03-28] MEDS: FUROSEMIDE 40 MG TAB PO SCH (09:53)
[2021-03-28] MEDS: SUCRALFATE 1 GM TAB PO SCH ×4 (09:53→20:20)
[2021-03-28] MEDS: ASPIRIN 81MG ENTERIC TABLET PO SCH (09:53)
[2021-03-28] MEDS: amLODIPine 5 MG TAB PO SCH (09:54)
[2021-03-28] MEDS: ACETAMINOPHEN 500 MG TAB PO SCH ×3 (09:55→20:21)
[2021-03-28] MEDS: LIDOCAINE 5% (LIDODERM) PATCH TD SCH (09:56)
[2021-03-28 11:35] LABS: BASO # 0.1 10^3/uL (0.0-0.2); BASO % 0.5 % (0.0-1.0); EOS # 0.2 10^3/uL (0.0-0.5); EOS % 2.4 % (0.0-3.0); HEMATOCRIT 40.8 % (42.0-52.0); HEMOGLOBIN 13.3 g/dl (13.5-17.5); LYMPH # 1.1 10^3/uL (1.5-5.0); LYMPH % 12.4 % (24.0-44.0); MEAN CORPUSCULAR HEMOGLOBIN 30.3 pg (27.0-33.0); MEAN CORPUSCULAR HGB CONC 32.6 g/dl (32.0-36.5); MEAN CORPUSCULAR VOLUME 92.9 fl (80.0-96.0); MONO # 0.6 10^3/uL (0.0-0.8); MONO % 6.5 % (2.0-8.0); NEUTROPHILS # 7.1 10^3/uL (1.5-8.5); NEUTROPHILS % 77.7 % (36.0-66.0); PLATELET COUNT, AUTOMATED 242 10^3/uL (150-450); RED BLOOD COUNT 4.39 10^6/uL (4.30-6.10); WHITE BLOOD COUNT 9.2 10^3/uL (4.0-10.0)
[2021-03-28 12:04] LABS: CALCIUM LEVEL 8.9 MG/DL (8.8-10.2); CREATININE FOR GFR 1.59 MG/DL (0.70-1.30); GLOMERULAR FILTRATION RATE 46.3 (>49); POTASSIUM SERUM 4.4 MEQ/L (3.5-5.1)
[2021-03-28 13:54] VITALS: BP 140/70
[2021-03-28 14:00] VITALS: BP 140/72
[2021-03-28] MEDS: SIMVASTATIN 40 MG TAB PO SCH (20:20)
[2021-03-28] MEDS: SENNA 8.6 MG TAB (SENOKOT) PO SCH (20:21)
[2021-03-28] MEDS: FAMOTIDINE 20 MG TAB PO SCH (20:21)
[2021-03-28] MEDS: VALSARTAN 80 MG TAB (DIOVAN) PO SCH (20:22)
[2021-03-28] MEDS: **NOTE PATIENT COMMENT** MISC XX SCH (20:22)
[2021-03-28 22:00] VITALS: BP 168/72
[2021-03-29 06:00] VITALS: BP 158/80
[2021-03-29] MEDS: **hydrALAZINE** 50 MG TAB PO SCH ×4 (06:07→23:46)
[2021-03-29] MEDS: ASCORBIC ACID 500 MG TAB PO SCH (07:46)
[2021-03-29] MEDS: APIXABAN 5 MG TAB (ELIQUIS) PO SCH ×2 (07:46→22:11)
[2021-03-29] MEDS: ASPIRIN 81MG ENTERIC TABLET PO SCH (07:46)
[2021-03-29] MEDS: MULTIVITAMINS/MINERALS THERAP 1 TAB PO SCH (07:46)
[2021-03-29] MEDS: SUCRALFATE 1 GM TAB PO SCH ×4 (07:46→22:12)
[2021-03-29] MEDS: HumaLOG INSULIN (NovoLOG) PER UNIT SC SCH ×4 (07:47→22:14)
[2021-03-29] MEDS: LEVEMIR (INSULIN DETEMIR) 1 UNITS/0.01ML SC SCH ×2 (07:48→22:14)
[2021-03-29] MEDS: ACETAMINOPHEN 500 MG TAB PO SCH ×3 (07:48→22:12)
[2021-03-29] MEDS: FUROSEMIDE 40 MG TAB PO SCH (07:48)
[2021-03-29] MEDS: LIDOCAINE 5% (LIDODERM) PATCH TD SCH (07:49)
[2021-03-29] MEDS: amLODIPine 5 MG TAB PO SCH (07:49)
[2021-03-29] MEDS: DOCUSATE SODIUM 100MG CAPSULE PO SCH ×2 (07:50→22:11)
[2021-03-29] MEDS: REMEDY PHYTOPLEX Z-GUARD PASTE 113GM TUBE (FROM STOREROOM PRODUCT) TOP SCH ×3 (07:50→22:15)
[2021-03-29 13:46] VITALS: BP 148/76
[2021-03-29 20:00] VITALS: BP 140/70
[2021-03-29] MEDS: SIMVASTATIN 40 MG TAB PO SCH (22:11)
[2021-03-29] MEDS: SENNA 8.6 MG TAB (SENOKOT) PO SCH (22:12)
[2021-03-29] MEDS: VALSARTAN 80 MG TAB (DIOVAN) PO SCH (22:12)
[2021-03-29] MEDS: FAMOTIDINE 20 MG TAB PO SCH (22:12)
[2021-03-29] MEDS: **NOTE PATIENT COMMENT** MISC XX SCH (22:14)
[2021-03-30 06:00] VITALS: BP 133/76
[2021-03-30] MEDS: **hydrALAZINE** 50 MG TAB PO SCH ×4 (06:16→23:06)
[2021-03-30] MEDS: SUCRALFATE 1 GM TAB PO SCH ×4 (08:55→21:47)
[2021-03-30] MEDS: ASPIRIN 81MG ENTERIC TABLET PO SCH (08:56)
[2021-03-30] MEDS: HumaLOG INSULIN (NovoLOG) PER UNIT SC SCH ×4 (08:56→21:51)
[2021-03-30] MEDS: MULTIVITAMINS/MINERALS THERAP 1 TAB PO SCH (08:56)
[2021-03-30] MEDS: LEVEMIR (INSULIN DETEMIR) 1 UNITS/0.01ML SC SCH ×2 (08:56→21:50)
[2021-03-30] MEDS: ASCORBIC ACID 500 MG TAB PO SCH (08:56)
[2021-03-30] MEDS: ACETAMINOPHEN 500 MG TAB PO SCH ×3 (08:57→21:48)
[2021-03-30] MEDS: FUROSEMIDE 40 MG TAB PO SCH (08:57)
[2021-03-30] MEDS: APIXABAN 5 MG TAB (ELIQUIS) PO SCH ×2 (08:57→21:48)
[2021-03-30] MEDS: amLODIPine 5 MG TAB PO SCH (08:58)
[2021-03-30] MEDS: REMEDY PHYTOPLEX Z-GUARD PASTE 113GM TUBE (FROM STOREROOM PRODUCT) TOP SCH ×3 (08:58→19:28)
[2021-03-30] MEDS: LIDOCAINE 5% (LIDODERM) PATCH TD SCH (08:58)
[2021-03-30] MEDS: DOCUSATE SODIUM 100MG CAPSULE PO SCH ×2 (08:58→21:00)
[2021-03-30 14:00] VITALS: BP 120/61
[2021-03-30 20:00] VITALS: BP 173/85
[2021-03-30] MEDS: SENNA 8.6 MG TAB (SENOKOT) PO SCH (21:00)
[2021-03-30] MEDS: FAMOTIDINE 20 MG TAB PO SCH (21:47)
[2021-03-30] MEDS: SIMVASTATIN 40 MG TAB PO SCH (21:47)
[2021-03-30] MEDS: VALSARTAN 80 MG TAB (DIOVAN) PO SCH (21:49)
[2021-03-30] MEDS: **NOTE PATIENT COMMENT** MISC XX SCH (21:51)
[2021-03-30 22:50] VITALS: BP 147/88
[2021-03-31] MEDS: **hydrALAZINE** 50 MG TAB PO SCH ×3 (05:43→18:02)
[2021-03-31 06:00] VITALS: BP 139/77
[2021-03-31 06:52] LABS: BASO # 0.1 10^3/uL (0.0-0.2); BASO % 1.1 % (0.0-1.0); EOS # 0.3 10^3/uL (0.0-0.5); EOS % 3.6 % (0.0-3.0); HEMATOCRIT 39.7 % (42.0-52.0); HEMOGLOBIN 12.7 g/dl (13.5-17.5); LYMPH # 1.4 10^3/uL (1.5-5.0); LYMPH % 18.4 % (24.0-44.0); MEAN CORPUSCULAR HEMOGLOBIN 29.5 pg (27.0-33.0); MEAN CORPUSCULAR VOLUME 92.3 fl (80.0-96.0); MONO # 0.6 10^3/uL (0.0-0.8); MONO % 7.9 % (2.0-8.0); NEUTROPHILS # 5.2 10^3/uL (1.5-8.5); NEUTROPHILS % 68.3 % (36.0-66.0); PLATELET COUNT, AUTOMATED 260 10^3/uL (150-450); WHITE BLOOD COUNT 7.6 10^3/uL (4.0-10.0)
[2021-03-31 07:21] LABS: CALCIUM LEVEL 8.9 MG/DL (8.8-10.2); CREATININE FOR GFR 1.57 MG/DL (0.70-1.30); MAGNESIUM LEVEL 1.8 MG/DL (1.8-2.4); POTASSIUM SERUM 3.8 MEQ/L (3.5-5.1)
[2021-03-31] MEDS: ASPIRIN 81MG ENTERIC TABLET PO SCH (08:47)
[2021-03-31] MEDS: DOCUSATE SODIUM 100MG CAPSULE PO SCH ×2 (08:47→20:18)
[2021-03-31] MEDS: HumaLOG INSULIN (NovoLOG) PER UNIT SC SCH ×4 (08:47→20:19)
[2021-03-31] MEDS: LEVEMIR (INSULIN DETEMIR) 1 UNITS/0.01ML SC SCH ×2 (08:47→20:19)
[2021-03-31] MEDS: ASCORBIC ACID 500 MG TAB PO SCH (08:47)
[2021-03-31] MEDS: amLODIPine 5 MG TAB PO SCH (08:48)
[2021-03-31] MEDS: APIXABAN 5 MG TAB (ELIQUIS) PO SCH ×2 (08:48→20:17)
[2021-03-31] MEDS: FUROSEMIDE 40 MG TAB PO SCH (08:48)
[2021-03-31] MEDS: SUCRALFATE 1 GM TAB PO SCH ×4 (08:48→20:17)
[2021-03-31] MEDS: MULTIVITAMINS/MINERALS THERAP 1 TAB PO SCH (08:48)
[2021-03-31] MEDS: LIDOCAINE 5% (LIDODERM) PATCH TD SCH (08:49)
[2021-03-31] MEDS: ACETAMINOPHEN 500 MG TAB PO SCH ×3 (08:49→20:18)
[2021-03-31] MEDS: REMEDY PHYTOPLEX Z-GUARD PASTE 113GM TUBE (FROM STOREROOM PRODUCT) TOP SCH ×3 (08:49→20:19)
[2021-03-31 14:00] VITALS: BP 138/66
[2021-03-31 20:00] VITALS: BP 161/76
[2021-03-31] MEDS: SIMVASTATIN 40 MG TAB PO SCH (20:17)
[2021-03-31] MEDS: FAMOTIDINE 20 MG TAB PO SCH (20:17)
[2021-03-31] MEDS: VALSARTAN 80 MG TAB (DIOVAN) PO SCH (20:18)
[2021-03-31] MEDS: SENNA 8.6 MG TAB (SENOKOT) PO SCH (20:18)
[2021-03-31] MEDS: **NOTE PATIENT COMMENT** MISC XX SCH (20:20)
[2021-04-01] MEDS: **hydrALAZINE** 50 MG TAB PO SCH ×4 (05:08→17:39)
[2021-04-01 06:00] VITALS: BP 140/77
[2021-04-01] MEDS: REMEDY PHYTOPLEX Z-GUARD PASTE 113GM TUBE (FROM STOREROOM PRODUCT) TOP SCH ×3 (08:05→21:00)
[2021-04-01] MEDS: MULTIVITAMINS/MINERALS THERAP 1 TAB PO SCH (08:39)
[2021-04-01] MEDS: SUCRALFATE 1 GM TAB PO SCH ×4 (08:40→21:30)
[2021-04-01] MEDS: DOCUSATE SODIUM 100MG CAPSULE PO SCH ×2 (08:40→21:00)
[2021-04-01] MEDS: ASPIRIN 81MG ENTERIC TABLET PO SCH (08:40)
[2021-04-01] MEDS: APIXABAN 5 MG TAB (ELIQUIS) PO SCH ×2 (08:40→21:30)
[2021-04-01] MEDS: ASCORBIC ACID 500 MG TAB PO SCH (08:40)
[2021-04-01] MEDS: FUROSEMIDE 40 MG TAB PO SCH (08:41)
[2021-04-01] MEDS: amLODIPine 5 MG TAB PO SCH (08:41)
[2021-04-01] MEDS: ACETAMINOPHEN 500 MG TAB PO SCH ×3 (08:42→21:30)
[2021-04-01] MEDS: HumaLOG INSULIN (NovoLOG) PER UNIT SC SCH ×4 (08:43→21:31)
[2021-04-01] MEDS: LIDOCAINE 5% (LIDODERM) PATCH TD SCH (08:44)
[2021-04-01] MEDS ORDERED: LEVEMIR (INSULIN DETEMIR) 1 UNITS/0.01ML SC SCH (09:00)
[2021-04-01 14:00] VITALS: BP 148/64
[2021-04-01 17:30] VITALS: BP 172/94
[2021-04-01 20:00] VITALS: BP 155/91
[2021-04-01] MEDS: SENNA 8.6 MG TAB (SENOKOT) PO SCH (21:00)
[2021-04-01] MEDS: SIMVASTATIN 40 MG TAB PO SCH (21:30)
[2021-04-01] MEDS: VALSARTAN 80 MG TAB (DIOVAN) PO SCH (21:30)
[2021-04-01] MEDS: FAMOTIDINE 20 MG TAB PO SCH (21:30)
[2021-04-01] MEDS: LEVEMIR (INSULIN DETEMIR) 1 UNITS/0.01ML SC SCH (21:31)
[2021-04-01] MEDS: **NOTE PATIENT COMMENT** MISC XX SCH (21:32)
[2021-04-02] MEDS: **hydrALAZINE** 50 MG TAB PO SCH ×4 (00:03→18:04)
[2021-04-02 06:00] VITALS: BP 156/78
[2021-04-02 06:17] LABS: BASO # 0.1 10^3/uL (0.0-0.2); BASO % 0.8 % (0.0-1.0); EOS # 0.3 10^3/uL (0.0-0.5); EOS % 3.8 % (0.0-3.0); HEMATOCRIT 39.1 % (42.0-52.0); HEMOGLOBIN 12.6 g/dl (13.5-17.5); LYMPH # 1.5 10^3/uL (1.5-5.0); LYMPH % 19.4 % (24.0-44.0); MEAN CORPUSCULAR HEMOGLOBIN 29.6 pg (27.0-33.0); MEAN CORPUSCULAR HGB CONC 32.2 g/dl (32.0-36.5); MONO # 0.7 10^3/uL (0.0-0.8); MONO % 9.6 % (2.0-8.0); PLATELET COUNT, AUTOMATED 251 10^3/uL (150-450); RED BLOOD COUNT 4.25 10^6/uL (4.30-6.10); WHITE BLOOD COUNT 7.6 10^3/uL (4.0-10.0)
[2021-04-02 06:45] LABS: CALCIUM LEVEL 8.8 MG/DL (8.8-10.2); CREATININE FOR GFR 1.4 MG/DL (0.70-1.30); GLOMERULAR FILTRATION RATE 53.7 (>49); POTASSIUM SERUM 3.9 MEQ/L (3.5-5.1)
[2021-04-02] MEDS: SUCRALFATE 1 GM TAB PO SCH ×4 (07:43→21:51)
[2021-04-02] MEDS: ASCORBIC ACID 500 MG TAB PO SCH (07:43)
[2021-04-02] MEDS: HumaLOG INSULIN (NovoLOG) PER UNIT SC SCH ×4 (07:43→21:52)
[2021-04-02] MEDS: APIXABAN 5 MG TAB (ELIQUIS) PO SCH ×2 (07:44→21:51)
[2021-04-02] MEDS: FUROSEMIDE 40 MG TAB PO SCH (07:44)
[2021-04-02] MEDS: ACETAMINOPHEN 500 MG TAB PO SCH ×3 (07:44→21:51)
[2021-04-02] MEDS: ASPIRIN 81MG ENTERIC TABLET PO SCH (07:44)
[2021-04-02] MEDS: DOCUSATE SODIUM 100MG CAPSULE PO SCH ×2 (07:45→21:51)
[2021-04-02] MEDS: amLODIPine 5 MG TAB PO SCH (07:45)
[2021-04-02] MEDS: MULTIVITAMINS/MINERALS THERAP 1 TAB PO SCH (07:45)
[2021-04-02] MEDS: SITagliptin 50 MG TAB (JANUVIA) PO SCH (07:45)
[2021-04-02] MEDS: LIDOCAINE 5% (LIDODERM) PATCH TD SCH (07:46)
[2021-04-02] MEDS: REMEDY PHYTOPLEX Z-GUARD PASTE 113GM TUBE (FROM STOREROOM PRODUCT) TOP SCH ×3 (07:46→21:00)
[2021-04-02 14:03] VITALS: BP 135/69
[2021-04-02 20:00] VITALS: BP 150/74
[2021-04-02] MEDS: VALSARTAN 80 MG TAB (DIOVAN) PO SCH (21:50)
[2021-04-02] MEDS: SENNA 8.6 MG TAB (SENOKOT) PO SCH (21:51)
[2021-04-02] MEDS: FAMOTIDINE 20 MG TAB PO SCH (21:51)
[2021-04-02] MEDS: SIMVASTATIN 40 MG TAB PO SCH (21:51)
[2021-04-02] MEDS: LEVEMIR (INSULIN DETEMIR) 1 UNITS/0.01ML SC SCH (21:51)
[2021-04-02] MEDS: **NOTE PATIENT COMMENT** MISC XX SCH (21:53)
[2021-04-03] MEDS: **hydrALAZINE** 50 MG TAB PO SCH ×3 (00:23→12:09)
[2021-04-03 06:00] VITALS: BP 129/74
[2021-04-03] MEDS: LIDOCAINE 5% (LIDODERM) PATCH TD SCH (08:42)
[2021-04-03] MEDS: SUCRALFATE 1 GM TAB PO SCH ×2 (08:42→12:07)
[2021-04-03] MEDS: HumaLOG INSULIN (NovoLOG) PER UNIT SC SCH ×2 (08:42→12:08)
[2021-04-03] MEDS: SITagliptin 50 MG TAB (JANUVIA) PO SCH (08:42)
[2021-04-03] MEDS: MULTIVITAMINS/MINERALS THERAP 1 TAB PO SCH (08:42)
[2021-04-03] MEDS: APIXABAN 5 MG TAB (ELIQUIS) PO SCH (08:43)
[2021-04-03] MEDS: FUROSEMIDE 40 MG TAB PO SCH (08:43)
[2021-04-03] MEDS: ASCORBIC ACID 500 MG TAB PO SCH (08:43)
[2021-04-03] MEDS: amLODIPine 5 MG TAB PO SCH (08:43)
[2021-04-03] MEDS: ACETAMINOPHEN 500 MG TAB PO SCH (08:43)
[2021-04-03] MEDS: ASPIRIN 81MG ENTERIC TABLET PO SCH (08:43)
[2021-04-03] MEDS: REMEDY PHYTOPLEX Z-GUARD PASTE 113GM TUBE (FROM STOREROOM PRODUCT) TOP SCH (08:44)
[2021-04-03] MEDS: DOCUSATE SODIUM 100MG CAPSULE PO SCH (08:44)
[2021-04-03] MEDS ORDERED: FURO40TA2 PO (11:43)
[2021-04-03] MEDS ORDERED: ELIQ5TAB PO (11:43)
[2021-04-03] MEDS ORDERED: BASA100I SC (11:43)
[2021-04-03] MEDS ORDERED: SITA50TAB PO (11:43)
[2021-04-03] MEDS ORDERED: DIOV80TA3 PO (11:43)
[2021-04-03] MEDS ORDERED: HYDR50TA PO (11:43)
[2021-04-03] MEDS ORDERED: ASPI-551 PO (11:43)
[2021-04-03] MEDS ORDERED: SIMV40TA20 PO (11:43)
[2021-04-03] MEDS ORDERED: FAMO40TA3 PO (11:43)
[2021-04-03 12:09] VITALS: BP 154/74
== END 2021-04-03 13:40 | disposition home health service (06) | DRG 561 ==
LOC: M PM&R 16:00
PROVIDERS: ADMIT Physical Medicine & Rehabilitation; ATTEND Physical Medicine & Rehabilitation
DX: S32.401D Unspecified fracture of right acetabulum, subsequent encounter for fracture with routine healing (principal); E11.42 Type 2 diabetes mellitus with diabetic polyneuropathy; I48.91 Unspecified atrial fibrillation; E78.5 Hyperlipidemia, unspecified; I12.9 Hypertensive chronic kidney disease with stage 1 through stage 4 chronic kidney disease, or unspecified chronic kidney disease; M43.06 Spondylolysis, lumbar region; Z74.09 Other reduced mobility; Z74.1 Need for assistance with personal care; K59.00 Constipation, unspecified; R20.0 Anesthesia of skin; Z89.411 Acquired absence of right great toe; Z79.01 Long term (current) use of anticoagulants; Z79.82 Long term (current) use of aspirin; Z79.4 Long term (current) use of insulin; Z79.899 Other long term (current) drug therapy; W00.0XXD Fall on same level due to ice and snow, subsequent encounter; E11.21 Type 2 diabetes mellitus with diabetic nephropathy; N18.9 Chronic kidney disease, unspecified

== ENCOUNTER → 2021-04-14 | Outpatient (CLI) | payer MEDICARE, BC ==
[~2021-04-14] MED LIST changes: +ACET1TAB55 PO; +ASPI-551 PO; +CYCL5TAB PO; -D31000TA2 PO; +DIOV80TA3 PO; +FEXO-117 PO; -FEXO180T58 PO; +FURO40TA2 PO; +HYDR50TA PO; +MIRA1POW3 PO; +PERCOCET PO; +SENN18TA PO; +SITA50TAB PO; +VITA100093 PO
== END ==
LOC: M SOG 08:39
PROVIDERS: ATTEND Orthopaedic Surgery
DX: S32.401A Unspecified fracture of right acetabulum, initial encounter for closed fracture (principal); X58.XXXA Exposure to other specified factors, initial encounter; Y92.89 Other specified places as the place of occurrence of the external cause; Y93.9 Activity, unspecified; Y99.9 Unspecified external cause status

== ENCOUNTER → 2021-05-27 | Outpatient (CLI) | payer MEDICARE, BC ==
[~2021-05-27] MED LIST changes: -VITA200015 PO; +VITA200035 PO
== END ==
LOC: M SOG 11:23
PROVIDERS: ATTEND Orthopaedic Surgery
DX: S32.401S Unspecified fracture of right acetabulum, sequela (principal); M25.551 Pain in right hip

== ENCOUNTER → 2024-03-16 | Outpatient (CLI) | payer MEDICARE, BC ==
[~2024-03-16] MED LIST changes: -CYCL5TAB PO; +CYCL5TAB4 PO; -FEXO-117 PO; +FEXO-193 PO; -HYDR50TA PO; +HYDR50TA47 PO; -MIRA1POW3 PO; +MIRA33506 PO; +SENN-165 PO; -SENN18TA PO
== END ==
LOC: M EKG 13:38
PROVIDERS: ATTEND Registered Nurse
DX: I45.2 Bifascicular block (principal)

== ENCOUNTER → 2024-03-23 | Outpatient (CLI) | payer MEDICARE, BC | LOC: M CARPUL 09:09 | PROVIDERS: ATTEND Internal Medicine Cardiovascular Disease | DX: I08.1 Rheumatic disorders of both mitral and tricuspid valves (principal) ==